=== PATIENT | male | born 1960 | race Caucasian/White ===

== ENCOUNTER 2016-11-28 15:02 | Emergency (ER) | payer BC ==
[~2016-11-28] VITALS: Ht 182.9 cm; Wt 95.0 kg
[~2016-11-28 15:02] MED LIST: ALBUAER19 INH; ATOR10TA88 PO; MULT-513 PO
[2016-11-28 15:27] VITALS: TEMP 36.8; Ht 182.9 cm; Wt 95.0 kg
[2016-11-28] MEDS ORDERED: SODIUM CHLORIDE 0.9% 1000ML 1,000 ML IV STA (16:34)
--- NOTE | 2016-11-28 16:35 | EMERGENCY ROOM VISIT NOTE ---
History Report prepared by Mey: Fabricio Garnett Under the Supervision of: Dr. Eldon Gore M.D. First contact with patient: 16:20 Chief Complaint: DIZZY Stated Complaint: TINGLING LEFT FINGERS, DIZZINESS YESTERDAY Nursing Triage Summary: PT VERBALIZES HE HAD LIGHTHEADEDNESS, DIZZINESS, AND NUMBNESS HIS LEFT HAND SINCE YESTERDAY. PT ALSO C/O LEFT SIDED CHEST PAIN SINCE THIS AFTERNOON. History of Present Illness The patient is a 56 year old male who presents to the Emergency Room with complaints of persistent left finger numbness that started yesterday. He says two of his fingers are tingling and a bit numb. The patient says that he had a panic attack earlier this afternoon and called his primary care physician, who told the patient to come here. The patient says that he got up yesterday, and had no time for breakfast. He went to work, and chugged a cup of coffee. All of a sudden he began to become lightheaded, and he never experienced lightheadedness like that before. The lightheadedness lasted for 2 minutes. Ever since then he has had tingling and numbness in 2 fingers in his left hand. The patient, when talking to his primary care physician earlier today, was asked whether he had any chest pain, and the patient then began to notice left- sided chest pain. His symptoms are still there, and he continues to have the achy chest pain and left finger-tingling. The patient says he has calmed down since his panic attack earlier. He does note that he was lifting weights many years ago, and his left shoulder popped, and ever since, he occasionally feels like his left arm is falling off and it gets a bit numb, especially whenever he drives long distances or does any lifting with his left arm. The patient is not diabetic. He has never had a stress test, and he has no family history of heart disease. He is a non-smoker. Source of History: patient Onset: Yesterday Position: finger(s) (left hand) Quality: tingling, numbness Timing: other (persistent) Associated Symptoms: + chest pain Note: Associated symptoms: Lightheadedness for 2 minutes yesterday. Panic attack earlier today. Review of Systems See HPI for pertinent positives & negatives. A total of 10 systems reviewed and were otherwise negative. Past Medical & Surgical Medical Problems: (1) Asthma (2) Skin problem Surgical Problems: (1) History of intestine removal Family History Cancer Social History Smoking Status: Never Smoker Alcohol Use: occasionally Drug Use: none Marital Status: Housing Status: lives with family Occupation Status: employed Current/Historical Medications Scheduled Albuterol Hfa (Ventolin Hfa), 1-2 PUFFS INH PRN UD Atorvastatin (Lipitor), 10 MG PO DAILY Multivitamins/Minerals (Mvi With Minerals), 1 TAB PO DAILY Allergies Coded Allergies: Hydrocodone (Verified Allergy, Unknown, ., 05/25/12) Nabumetone (Verified Allergy, Unknown, 05/25/12) Oxycodone (Verified Allergy, Unknown, ., 05/25/12) Physical Exam Vital Signs Date Time Temp Pulse Resp B/P Pulse Ox O2 Delivery O2 Flow Rate FiO2 11/28/16 18:30 51 16 127/82 96 11/28/16 17:20 61 16 131/87 96 11/28/16 16:58 98 Room Air 11/28/16 16:56 67 11/28/16 15:27 36.8 78 18 158/102 96 Room Air Physical Exam GENERAL: Patient is a healthy-appearing well-nourished HEAD: Normocephalic atraumatic EYES: Ocular movements intact pupils equal and react to light OROPHARYNX mucous membranes are moist no exudates present no erythema or edema present NECK: Supple no nuchal rigidity CHEST: Good equal expansion LUNGS: Clear and equal to auscultation CARDIAC: Normal S1 and S2 ABDOMEN: Soft nontender no guarding BACK: No CVA tenderness EXTREMITIES: No pain upon palpation normal muscle strength in all groups no clubbing cyanosis or edema. Positive Phalen's and Tinel signs, reproduces his numbness. NEURO: Patient is following commands is answering questions appropriately. Alert and oriented x3 Cranial Nerves 2-12 grossly intact Medical Decision & Procedures ER Provider Diagnostic Interpretation: X-ray results as stated below per interpretation by me and the radiologist: CHEST ONE VIEW PORTABLE HISTORY: Atypical CHEST PAIN COMPARISON: None. FINDINGS: The lungs are clear. Cardiac silhouette is normal in size. No pleural effusions. No pneumothorax. Mild S-shaped scoliosis of the thoracic spine. IMPRESSION: No acute process. Electronically signed by: Jorge Blank M.D. 11/28/2016 5:02 PM Dictated Date/Time: 11/28/2016 5:01 PM Laboratory Results 11/28/16 16:51 Red Blood Count 4.63, Mean Corpuscular Volume 91.4, Mean Corpuscular Hemoglobin 32.4, Mean Corpuscular Hemoglobin Concent 35.5, Mean Platelet Volume 11.9, Neutrophils (%) (Auto) 76.8, Lymphocytes (%) (Auto) 11.7, Monocytes (%) (Auto) 9.0, Eosinophils (%) (Auto) 1.8, Basophils (%) (Auto) 0.5, Neutrophils # (Auto) 6.78, Lymphocytes # (Auto) 1.03, Monocytes # (Auto) 0.79, Eosinophils # (Auto) 0.16, Basophils # (Auto) 0.04 11/28/16 16:51 Test 11/28/16 16:51 White Blood Count 8.82 K/uL (4.8-10.8) Red Blood Count 4.63 M/uL (4.7-6.1) Hemoglobin 15.0 g/dL (14.0-18.0) Hematocrit 42.3 % (42-52) Mean Corpuscular Volume 91.4 fL (80-100) Mean Corpuscular Hemoglobin 32.4 pg (25-34) Mean Corpuscular Hemoglobin Concent 35.5 g/dl (32-36) Platelet Count 167 K/uL (130-400) Mean Platelet Volume 11.9 fL (7.4-10.4) Neutrophils (%) (Auto) 76.8 % Lymphocytes (%) (Auto) 11.7 % Monocytes (%) (Auto) 9.0 % Eosinophils (%) (Auto) 1.8 % Basophils (%) (Auto) 0.5 % Neutrophils # (Auto) 6.78 K/uL (1.4-6.5) Lymphocytes # (Auto) 1.03 K/uL (1.2-3.4) Monocytes # (Auto) 0.79 K/uL (0.11-0.59) Eosinophils # (Auto) 0.16 K/uL (0-0.5) Basophils # (Auto) 0.04 K/uL (0-0.2) RDW Standard Deviation 41.2 fL (36.4-46.3) RDW Coefficient of Variation 12.3 % (11.5-14.5) Immature Granulocyte % (Auto) 0.2 % Immature Granulocyte # (Auto) 0.02 K/uL (0.00-0.02) Anion Gap 11.0 mmol/L (3-11) Est Creatinine Clear Calc Drug Dose 104.1 ml/min Estimated GFR () 102.2 Estimated GFR (Non- 88.1 BUN/Creatinine Ratio 15.1 (10-20) Calcium Level 8.4 mg/dl (8.5-10.1) Total Bilirubin 0.5 mg/dl (0.2-1) Direct Bilirubin 0.1 mg/dl (0-0.2) Aspartate Amino Transf (AST/SGOT) 21 U/L (15-37) Alanine Aminotransferase (ALT/SGPT) 23 U/L (12-78) Alkaline Phosphatase 90 U/L (45-117) Total Creatine Kinase 115 U/L (39-308) Creatine Kinase MB 1.9 ng/ml (0.5-3.6) Creatine Kinase MB Ratio 1.7 (0-3.0) Troponin I < 0.015 ng/ml (0-0.045) Total Protein 6.8 gm/dl (6.4-8.2) Albumin 3.8 gm/dl (3.4-5.0) Lipase 109 U/L (73-393) Labs reviewed by ED physician. Medications Administered Medications (Trade) Dose Ordered Sig/Sonja Route Start Time Stop Time Status Last Admin Dose Admin Sodium Chloride (Nss 1000ml) 1,000 ml @ 999 mls/hr Q1H1M STAT IV 11/28/16 16:34 11/28/16 17:34 DC 11/28/16 17:02 999 MLS/HR ECG Indication: chest pain Rate (beats per minute): 57 Rhythm: normal sinus Findings: no acute ischemic change, no ectopy, other (normal ECG) Change: Repeat ECG: Sinus bradycardia at 59 bpm, no ectopy, no acute ischemic changes. ED Course 1621: Past medical records reviewed. The patient was evaluated in room A10. A complete history and physical examination was performed. 1634: Ordered NSS 1000 ml @ 999 mls/hr IV. 5: I reevaluated the patient and he is resting comfortably. The patient verbally expressed understanding and agreement of the treatment plan. The patient will be discharged. Medical Decision Differential diagnosis: Etiologies such as cardiac ischemia, aortic dissection, pulmonary embolism, pneumonia, pneumothorax, musculoskeletal, infections, pericarditis, myocarditis , esophageal rupture, gastrointestinal, as well as others were entertained. This is a 56-year-old male who presents emergency department complaining of tingling to his left pinky and ring fingers. The patient reports that he does a large amount of typing throughout the day and I believe he is most likely suffering from an ulnar nerve irritation. In addition to the numbness to his 2 fingers he is also complaining of chest pain reports that he had an anxiety attack relating to the numbness. The patient is currently pain-free however serial EKGs were performed as well as serial troponin levels. These were all found to be normal. I do believe that the patient as well as that he can be discharged home for follow-up with cardiology. Patient was in agreement with the treatment plan. Impression Primary Impression: Chest pain Additional Impression: Finger numbness Scribe Attestation The scribe's documentation has been prepared under my direction and personally reviewed by me in its entirety. I confirm that the note above accurately reflects all work, treatment, procedures, and medical decision making performed by me. Departure Information Dispostion Home / Self-Care Referrals RV. Duarte MD (PCP) Samuel Kathleen M.D. Espinoza Dove MD Forms HOME CARE DOCUMENTATION FORM, IMPORTANT VISIT INFORMATION, School Instructions, Work Instructions Patient Instructions Chest Pain - [facility], [facility] Additional Instructions Follow up with DR Driver's office Follow up with DR Dove's office next week (No strenuous activity until follow up) You have been examined and treated today on an emergency basis only. This is not a substitute for, or an effort to provide, complete comprehensive medical care. It is impossible to recognize and treat all injuries or illnesses in a single emergency department visit. It is therefore important that you follow up closely with Dr Driver. Call as soon as possible for an appointment. Thank you for your time and consideration. I look forward to speaking with you again soon. Please don't hesitate to call us if you have any questions. Problem Qualifiers Primary Impression: Chest pain Chest pain type: precordial pain Qualified Codes: R07.2 - Precordial pain
[2016-11-28 16:58] VITALS: O2SAT 98
--- NOTE | 2016-11-28 17:04 | DIAGNOSTIC IMAGING REPORT ---
CHEST ONE VIEW PORTABLE HISTORY: Atypical CHEST PAIN COMPARISON: None. FINDINGS: The lungs are clear. Cardiac silhouette is normal in size. No pleural effusions. No pneumothorax. Mild S-shaped scoliosis of the thoracic spine. IMPRESSION: No acute process. Electronically signed by: Jorge Blank M.D. 11/28/2016 5:02 PM Dictated Date/Time: 11/28/2016 5:01 PM
[2016-11-28 17:06] LABS: BASO % 0.5 %; BASO ABS # 0.04 K/uL (0-0.2); COMPLETE YES; EOS % 1.8 %; HEMATOCRIT 42.3 % (42-52); IG% 0.2 %; LYMPH % 11.7 %; LYMPH ABS # 1.03 K/uL (1.2-3.4); MEAN CELL VOLUME 91.4 fL (80-100); MEAN CORPUSCULAR HEMOGLOBIN 32.4 pg (25-34); MEAN CORPUSCULAR HGB CONC 35.5 g/dl (32-36); MEAN PLATELET VOLUME 11.9 fL (7.4-10.4); NEUT % 76.8 %; PLATELET COUNT 167 K/uL (130-400); RED BLOOD COUNT 4.63 M/uL (4.7-6.1); WHITE BLOOD COUNT 8.82 K/uL (4.8-10.8)
[2016-11-28] MEDS ORDERED: VNTHFA/IN INH (17:15)
[2016-11-28 17:25] LABS: ALT/SGPT 23 U/L (12-78); BLOOD UREA NITROGEN 15 mg/dl (7-18); BUN/CREATININE RATIO 15.1 (10-20); CALCIUM 8.4 mg/dl (8.5-10.1); CARBON DIOXIDE 25 mmol/L (21-32); CHLORIDE 107 mmol/L (98-107); CREATININE 0.97 mg/dl (0.60-1.40); GLUCOSE 83 mg/dl (70-99); POTASSIUM 3.9 mmol/L (3.5-5.1); SODIUM 143 mmol/L (136-145)
[2016-11-28 17:31] LABS: ALKALINE PHOSPHATASE 90 U/L (45-117); AST/SGOT 21 U/L (15-37); CKMB/CK RATIO 1.7 (0-3.0)
[2016-11-28 19:57] VITALS: BP 131/81; PULSE 54; O2SAT 99
== END 2016-11-28 20:12 | disposition home or self-care (01) ==
LOC: C.EDB 15:03 → C.EDA 20:12
DX: R07.9 Chest pain, unspecified (principal); R20.0 Anesthesia of skin; J45.909 Unspecified asthma, uncomplicated

== ENCOUNTER → 2016-12-03 | Outpatient (CLI) | payer BC ==
[~2016-12-03] MED LIST changes: -ALBUAER19 INH; +VNTHFA/IN INH
--- NOTE | 2016-12-03 10:11 | DIAGNOSTIC IMAGING REPORT ---
CERVICAL SPINE 5 VIEWS CLINICAL HISTORY: Left upper extremity numbness. FINDINGS: AP, lateral, bilateral oblique, and odontoid views of the cervical spine are obtained. No prior studies are for comparison at the time of dictation. The skeletal structures are osteopenic. There is no radiographic evidence of fracture or subluxation. The odontoid process and lateral masses appear intact on the open-mouth view. The spinolaminar line is maintained. Vertebral body height is preserved throughout the cervical spine. There is minimal anterolisthesis at C4-C5 and C5-C6. There is straightening of the cervical lordosis with mild reversal centered at C4-C5. There is near-complete bony fusion of the C6 and C7 vertebral bodies. Moderate degenerative disc space narrowing is seen at C5-C6. Mild degenerative disc space narrowing seen at C4-C5. Posterior disc osteophyte complexes at C5-C6 and C6-C7 likely contribute to mild acquired compromise of the central canal. No significant neural foraminal stenosis is suggested on the oblique views. The prevertebral soft tissues are normal as imaged. The visualized apical lung parenchyma appears clear. There is moderate levocurvature of the upper thoracic spine. IMPRESSION: 1. No acute bony abnormality is seen involving the cervical spine. 2. Osteopenia with cervical spondylosis and upper thoracic scoliosis as above. Dictated: 12/03/2016 9:50 AM Transcribed: 12/03/2016 10:11 AM ADAN_Jose J Electronically signed by: Harman Hendricks M.D. 12/03/2016 10:14 AM Dictated Date/Time: 12/03/2016 9:50 AM
== END | disposition home or self-care (01) ==
LOC: C.RAD1850 09:31
PROVIDERS: ATTEND Internal Medicine
DX: R20.0 Anesthesia of skin (principal); M85.80 Other specified disorders of bone density and structure, unspecified site; M47.812 Spondylosis without myelopathy or radiculopathy, cervical region

== ENCOUNTER → 2017-03-27 | Outpatient (CLI) | payer OTHER, BC ==
[~2017-03-27] MED LIST changes: +ATOR10TA82 PO; -ATOR10TA88 PO
== END | disposition home or self-care (01) ==
LOC: C.RDSM 13:17
PROVIDERS: ATTEND Family Medicine Sports Medicine
DX: M25.511 Pain in right shoulder (principal)

== ENCOUNTER → 2017-04-06 | Outpatient (CLI) | payer BC ==
--- NOTE | 2017-04-06 18:05 | DIAGNOSTIC IMAGING REPORT ---
MRI right shoulder RIGHT UPPER EXT JOINT WITHOUT CLINICAL HISTORY: RIGHT SHOULDER PAIN *HAD MRI SINCE EYE METAL SALIMA Right pain TECHNIQUE: MRI multi axial acquisition COMPARISON STUDY: None FINDINGS: Signal characteristics the osseous structures indicate a slight Hill-Sachs type deformity posterior lateral aspect humeral head. Biceps tendon is intact within the bicipital groove. High-grade partial thickness tear inferior surface of the supraspinatus tendon. No evidence for well-defined full-thickness tear. The infraspinatus and subscapularis tendons are unremarkable. Truncation anterior glenoid labrum considered nonacute. Posterior labrum is intact. IMPRESSION: 1. Slight truncation apex anterior aspect anterior glenoid labrum. 2. Slight Hill-Sachs deformity posterior lateral aspect humeral head. 3. Partial thickness tear mid supraspinatus tendon with superimposed tendinopathy. Electronically signed by: Shekhar Bowens M.D. 04/06/2017 6:04 PM Dictated Date/Time: 04/06/2017 6:00 PM
== END | disposition home or self-care (01) ==
LOC: C.MRI 16:50
PROVIDERS: ATTEND Family Medicine Sports Medicine
DX: M25.811 Other specified joint disorders, right shoulder (principal); S46.011A Strain of muscle(s) and tendon(s) of the rotator cuff of right shoulder, initial encounter; X58.XXXA Exposure to other specified factors, initial encounter

== ENCOUNTER → 2017-07-08 | Outpatient (CLI) | payer BC ==
[~2017-07-08] MED LIST changes: -ATOR10TA82 PO; +ATOR10TA88 PO
--- NOTE | 2017-07-08 19:53 | DIAGNOSTIC IMAGING REPORT ---
CERVICAL SPINE 2 OR 3 VIEWS CLINICAL HISTORY: S/P CERVICAL SPINAL FUSION COMPARISON STUDY: Lateral cervical spine radiograph January 05, 2017. FINDINGS: There are findings consistent with a C5-C6 discectomy and anterior fusion. In addition, there are findings consistent with a C4-C7 posterior fusion with decompression. Note is made of lucency adjacent to the screws at the C5 level as well as at least one screw at the C7 level. There is straightening of the normal cervical lordosis. There is no acute fracture. IMPRESSION: 1. Status post C5-C6 anterior discectomy and fusion and C4-C7 posterior fusion. Hardware intact. Lucency adjacent to the C5 screws and one screw at the C7 level raise the possibility of loosening. 2. No cervical spine fracture. Straightening of normal cervical lordosis. 3. Mild to moderate disc space narrowing at C6-C7. Electronically signed by: Faizan Doran M.D. 07/08/2017 7:51 PM Dictated Date/Time: 07/08/2017 7:47 PM
== END | disposition home or self-care (01) ==
LOC: C.RAD 18:45
PROVIDERS: ATTEND Specialist
DX: Z98.1 Arthrodesis status (principal)

== ENCOUNTER → 2018-01-19 | Outpatient (CLI) | payer OTHER ==
[~2018-01-19] MED LIST changes: +ATOR10TA82 PO; -ATOR10TA88 PO; +OPTIRAY 320 IV PRN
--- NOTE | 2018-01-19 15:44 | DIAGNOSTIC IMAGING REPORT ---
HEAD WITHOUT CONTRAST (CT) CLINICAL HISTORY: 58 years-old Male with S06.9X9A Traumatic brain [id number]. Acute head injury TECHNIQUE: Multiple axial CT images of the head were obtained without contrast. A dose lowering technique was utilized adhering to the principles of ALARA. COMPARISON: CTA neck of same day, CT head 02/19/2017 and 05/25/2012. FINDINGS: No acute intracranial hemorrhage, midline shift, intracranial mass, hydrocephalus, territorial ischemia or abnormal extra-axial collection. There is resolution of the previously noted extra-axial hemorrhage adjacent to the bilateral frontal lobes seen on comparison exam 02/19/2017. There is mild cerebral atrophy. Patchy areas of decreased attenuation are again seen within the periventricular and subcortical white matter of the cerebral hemispheres bilaterally, most pronounced within the frontal lobes which appear unchanged suggesting chronic microvascular ischemic changes. Encephalomalacia of the left frontal lobe is also unchanged. Cerebral vascular calcifications are seen at the level of the skull base. Extensive fusion hardware of the cervical spine as noted on the principal security architect localizer images.The calvarium is intact. The paranasal sinuses, mastoid air cells, and middle ear cavities are clear. IMPRESSION: No acute intracranial abnormality. The above report was generated using voice recognition software. It may contain grammatical, syntax or spelling errors. Electronically signed by: Ezekiel Farr M.D. 01/19/2018 3:43 PM Dictated Date/Time: 01/19/2018 3:39 PM
--- NOTE | 2018-01-19 15:53 | DIAGNOSTIC IMAGING REPORT ---
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 CT angiography was then performed in a dynamic helical fashion during intravenous administration 116 cc of Optiray 320. MIP imaging was performed A dose lowering technique was utilized adhering to the principles of ALARA. COMPARISON STUDY: Outside study dated 01/04/2017 FINDINGS: The visualized portions lung apices are unremarkable. There is a 7 mm right lobe thyroid nodule. Right carotid: There is no evidence of right internal carotid artery stenosis or dissection. Left carotid: There is no evidence of left internal carotid artery stenosis or dissection. Vertebral arteries: There is no evidence of vertebral artery stenosis or dissection. The previously identified left vertebral artery dissection is no longer evident. Postsurgical changes are present within the cervical spine. IMPRESSION: No evidence of vertebral or carotid artery stenosis or dissection Electronically signed by: Tim Diaz M.D. 01/19/2018 3:52 PM Dictated Date/Time: 01/19/2018 3:45 PM
== END | disposition home or self-care (01) ==
LOC: C.CTS 15:08
PROVIDERS: ATTEND Psychiatry & Neurology Neurology
DX: I77.74 Dissection of vertebral artery (principal); S06.9X9A Unspecified intracranial injury with loss of consciousness of unspecified duration, initial encounter; X58.XXXA Exposure to other specified factors, initial encounter